=== PATIENT | female | born 1960 | race Caucasian/White ===

== ENCOUNTER → 2017-02-16 | Outpatient (CLI) | payer OTHER ==
[~2017-02-16] MED LIST: FLUO60TA PO; GABA300C10 PO; HYDR50TA13 PO; LAMO200T49 PO
== END | disposition home or self-care (01) ==
LOC: PETCFH 09:15
PROVIDERS: ATTEND Radiology Radiation Oncology
DX: C25.1 Malignant neoplasm of body of pancreas (principal)
CPT/HCPCS: 78815; A9552

== ENCOUNTER 2017-02-24 07:33 | Day surgery (SDC) | payer OTHER ==
[~2017-02-24] VITALS: Ht 165.1 cm; Wt 63.5 kg
[2017-02-24] MEDS ORDERED: LACTATED RINGERS 1,000 ML IV SCH (08:18)
[2017-02-24 08:41] VITALS: BP 113/76
[2017-02-24] MEDS ORDERED: HYDR-3138 PO (08:48)
[2017-02-24] MEDS ORDERED: HEPARIN 1,000 UNITS/ML, 10ML ONE (09:36)
[2017-02-24] MEDS ORDERED: PROTAMINE SULFATE 10 MG/ML, 5ML ONE (09:36)
[2017-02-24] MEDS ORDERED: BUPIVACAINE/PF-EPI 0.5% 1:200K ONE (09:36)
[2017-02-24] MEDS ORDERED: LIDOCAINE/PF 1%, 30ML ONE (09:37)
[2017-02-24] MEDS ORDERED: FENTANYL PF 250 MCG/5ML ONE (10:15)
[2017-02-24] MEDS ORDERED: ALBUTEROL SULFATE 200 PUFFS/8.5 GR INH ONE (10:16)
[2017-02-24] MEDS ORDERED: ONDANSETRON 2MG/ML, 2ML ONE (10:16)
[2017-02-24] MEDS ORDERED: CEFAZOLIN 1,000 MG ONE (10:16)
[2017-02-24] MEDS ORDERED: SUCCINYLCHOLINE 20 MG/ML, 10ML ONE (10:16)
[2017-02-24] MEDS ORDERED: GLYCOPYRROLATE 0.2MG/1ML ONE (10:16)
[2017-02-24] MEDS ORDERED: PROPOFOL 10 MG/ML, 20ML ONE (10:16)
[2017-02-24] MEDS ORDERED: NEOSTIGMINE 1 MG/ML, 10ML ONE (10:16)
[2017-02-24] MEDS ORDERED: EPHEDRINE 50 MG/ML, 1ML ONE (10:16)
[2017-02-24] MEDS ORDERED: DEXAMETHASONE 4 MG/ML, 1ML ONE (10:16)
[2017-02-24] MEDS ORDERED: ROCURONIUM 10 MG/ML ONE (10:16)
[2017-02-24] MEDS ORDERED: MIDAZOLAM 1 MG/ML, 2ML ONE (10:16)
[2017-02-24] MEDS ORDERED: ALBUTEROL SULFATE 2.5 MG/3 ML NPPB PRN (12:00)
[2017-02-24] MEDS ORDERED: MEPERIDINE/PF 25MG/0.5ML IVPush PRN (12:00)
[2017-02-24] MEDS ORDERED: FENTANYL PF 100 MCG/2ML IV PRN (12:00)
[2017-02-24] MEDS ORDERED: LABETALOL 5MG/ML, 20ML IV PRN (12:00)
[2017-02-24] MEDS ORDERED: EPHEDRINE 50 MG/ML, 1ML IVPush PRN (12:00)
[2017-02-24] MEDS ORDERED: HYDROmorphone 1 MG/ML, 1ML IV PRN (12:00)
[2017-02-24] MEDS ORDERED: ONDANSETRON 2MG/ML, 2ML IVPush PRN (12:00)
[2017-02-24] MEDS ORDERED: hydrALAzine 20 MG/ML, 1ML IV PRN (12:00)
[2017-02-24] MEDS ORDERED: HYDROcodone/APAP 7.5-325MG/15ML UDC PO PRN (12:00)
[2017-02-24] MEDS ORDERED: PROMETHAZINE 25 MG/ML, 1ML IV PRN (12:00)
[2017-02-24] MEDS ORDERED: OXYcodone/APAP 5/325MG TABLET PO ONE (12:30)
== END 2017-02-24 13:55 | disposition home or self-care (01) ==
LOC: OUT 07:33
PROVIDERS: ATTEND Surgery
DX: C25.1 Malignant neoplasm of body of pancreas (principal); M19.071 Primary osteoarthritis, right ankle and foot; F41.9 Anxiety disorder, unspecified; F32.9 Major depressive disorder, single episode, unspecified; Z84.1 Family history of disorders of kidney and ureter; Z79.01 Long term (current) use of anticoagulants
CPT/HCPCS: 36415; 36571; 71010; 77001; 85610; 85730; C1788; J0330; J0690; J1100; J1644; J2250; J2405; J2704; J2710; J3010; J7120; J2720; J3490

== ENCOUNTER 2017-03-18 12:40 | Emergency (ER) | payer OTHER ==
[~2017-03-18] VITALS: Ht 162.6 cm; Wt 67.4 kg
[~2017-03-18 12:40] MED LIST changes: +HYDR-3138 PO
[2017-03-18 12:42] VITALS: BP 122/76
[2017-03-18] MEDS ORDERED: SODIUM CHLORIDE FLUSH 10ML SYR IVF ONE (13:00)
[2017-03-18] MEDS ORDERED: SODIUM CHLORIDE 0.9% 1,000ML IVBOLUS ONE (13:00)
[2017-03-18 13:39] LABS: ASPARTATE AMINO TRANSFERASE 22 U/L (15-37); BLOOD UREA NITROGEN 9 mg/dL (7-18)
== END 2017-03-18 15:38 | disposition home or self-care (01) ==
LOC: ED 14:01
DX: R42 Dizziness and giddiness (principal)
CPT/HCPCS: 36415; 70450; 80053; 82140; 83605; 83690; 85025; 93005; 96360; 99285; J7030

== ENCOUNTER → 2017-06-25 | Outpatient (CLI) | payer OTHER ==
[~2017-06-25] MED LIST changes: -HYDR-3138 PO; +HYDR-3237 PO
== END | disposition home or self-care (01) ==
LOC: ROC 11:19
PROVIDERS: ATTEND Radiology Radiation Oncology
DX: C25.1 Malignant neoplasm of body of pancreas (principal); Z90.3 Acquired absence of stomach [part of]
CPT/HCPCS: 99213; G0463

== ENCOUNTER → 2017-07-07 | Outpatient (CLI) | payer OTHER ==
[~2017-07-07] MED LIST changes: +OMNIPAQUE 350 MG/ML, 100ML BOTTLE ONE
== END | disposition home or self-care (01) ==
LOC: RAD 13:56
PROVIDERS: ATTEND Surgery
DX: Z46.82 Encounter for fitting and adjustment of non-vascular catheter (principal); C25.1 Malignant neoplasm of body of pancreas; K76.0 Fatty (change of) liver, not elsewhere classified; K91.89 Other postprocedural complications and disorders of digestive system; M47.896 Other spondylosis, lumbar region; I70.209 Unspecified atherosclerosis of native arteries of extremities, unspecified extremity
CPT/HCPCS: 74170; Q9967

== ENCOUNTER → 2017-08-03 | Outpatient (CLI) | payer OTHER ==
[~2017-08-03] MED LIST changes: -OMNIPAQUE 350 MG/ML, 100ML BOTTLE ONE
== END ==
LOC: ROC 13:57
PROVIDERS: ATTEND Radiology Radiation Oncology
DX: Z02.9 Encounter for administrative examinations, unspecified (principal)

== ENCOUNTER → 2017-10-01 | Outpatient (CLI) | payer OTHER | END | disposition home or self-care (01) | LOC: ROC 12:30 | PROVIDERS: ATTEND Radiology Radiation Oncology | DX: C25.1 Malignant neoplasm of body of pancreas (principal) | CPT/HCPCS: 99213; G0463 ==

== ENCOUNTER → 2017-10-28 | Outpatient (CLI) | payer OTHER | END | disposition home or self-care (01) | LOC: ROC 08:53 | PROVIDERS: ATTEND Radiology Radiation Oncology | DX: C25.1 Malignant neoplasm of body of pancreas (principal) | CPT/HCPCS: 99213; G0463 ==

== ENCOUNTER → 2017-11-18 | Outpatient (CLI) | payer OTHER | END | disposition home or self-care (01) | LOC: ROC 09:48 | PROVIDERS: ATTEND Radiology Radiation Oncology | DX: C25.1 Malignant neoplasm of body of pancreas (principal) | CPT/HCPCS: 99213; G0463 ==

== ENCOUNTER → 2017-11-27 | Outpatient (CLI) | payer OTHER, MEDICAID ==
[~2017-11-27] MED LIST changes: +OMNIPAQUE 350 MG/ML, 100ML BOTTLE ONE
== END | disposition home or self-care (01) ==
LOC: CFH 15:13
PROVIDERS: ATTEND Radiology Radiation Oncology
DX: C25.1 Malignant neoplasm of body of pancreas (principal); Z90.49 Acquired absence of other specified parts of digestive tract; Z90.81 Acquired absence of spleen; Z90.411 Acquired partial absence of pancreas
CPT/HCPCS: 71260; 74177; Q9967

== ENCOUNTER → 2017-11-30 | Outpatient (CLI) | payer OTHER, MEDICAID ==
[~2017-11-30] MED LIST changes: -OMNIPAQUE 350 MG/ML, 100ML BOTTLE ONE
== END | disposition home or self-care (01) ==
LOC: ROC 10:04
PROVIDERS: ATTEND Radiology Radiation Oncology
DX: C25.1 Malignant neoplasm of body of pancreas (principal); Z98.890 Other specified postprocedural states
CPT/HCPCS: 99212; G0463

== ENCOUNTER → 2018-02-25 | Outpatient (CLI) | payer OTHER ==
[~2018-02-25] MED LIST changes: +OMNIPAQUE 350 MG/ML, 100ML BOTTLE ONE
== END ==
LOC: CFH 08:10
PROVIDERS: ATTEND Internal Medicine Hematology & Oncology
DX: C25.1 Malignant neoplasm of body of pancreas (principal)
CPT/HCPCS: 71260; 74177; 82565; Q9967

== ENCOUNTER 2018-03-31 06:15 | Day surgery (SDC) | payer MEDICAID, OTHER ==
[~2018-03-31] VITALS: Ht 165.1 cm; Wt 49.3 kg
[~2018-03-31 06:15] MED LIST changes: -OMNIPAQUE 350 MG/ML, 100ML BOTTLE ONE
[2018-03-31 06:57] VITALS: BP 149/77
[2018-03-31] MEDS ORDERED: MIDAZOLAM 1 MG/ML, 5ML ONE (08:02)
[2018-03-31] MEDS ORDERED: FENTANYL PF 100 MCG/2ML ONE (08:02)
[2018-03-31] MEDS ORDERED: NALOXONE 1 MG/ML, 2ML ONE (08:02)
[2018-03-31] MEDS ORDERED: FLUMAZENIL 0.1 MG/1 ML, 5ML ONE (08:02)
== END 2018-03-31 10:30 | disposition home or self-care (01) ==
LOC: OUT 06:15
PROVIDERS: ATTEND Internal Medicine Hematology & Oncology
DX: Z45.2 Encounter for adjustment and management of vascular access device (principal); C25.1 Malignant neoplasm of body of pancreas; F41.9 Anxiety disorder, unspecified; F32.9 Major depressive disorder, single episode, unspecified; F19.90 Other psychoactive substance use, unspecified, uncomplicated; Z87.39 Personal history of other diseases of the musculoskeletal system and connective tissue; Z98.890 Other specified postprocedural states
CPT/HCPCS: 36590; 77001; 99156; 99157; J2250; J3010; J2310

== ENCOUNTER → 2018-04-05 | Outpatient (CLI) | payer MEDICAID, OTHER | END | disposition home or self-care (01) | LOC: ROC 01-13 07:45 | PROVIDERS: ATTEND Radiology Radiation Oncology | DX: C25.1 Malignant neoplasm of body of pancreas (principal) | CPT/HCPCS: 99213; G0463 ==

== ENCOUNTER 2018-05-09 14:30 | Emergency (ER) | payer MEDICAID ==
[~2018-05-09] VITALS: Ht 165.1 cm; Wt 50.4 kg
[2018-05-09 14:31] VITALS: BP 145/77
[2018-05-09 15:34] LABS: BASOPHILS # (AUTO) 0.05 x10^3/uL (0-0.1); BASOPHILS % (AUTO) 1 % (0-1); EOSINOPHILS # (AUTO) 0.11 x10^3/uL (0-0.4); EOSINOPHILS % (AUTO) 1 % (1-7); LYMPHOCYTES # (AUTO) 2.56 x10^3/uL (1-3.4); LYMPHOCYTES % (AUTO) 30 % (22-44); MD NO; MEAN CORPUSCULAR HEMOGLOBIN 31.1 pg (27.0-34.8); MEAN CORPUSCULAR HGB CONC 32.8 g/dL (32.4-35.8); MEAN CORPUSCULAR VOLUME 94.8 fL (80-100); MEAN PLATELET VOLUME 8.2 fL (7.4-10.4); MONOCYTES # (AUTO) 0.84 x10^3/uL (0.2-0.8); MONOCYTES % (AUTO) 10 % (2-9); NEUTROPHILS # (AUTO) 5.01 x10^3/uL (1.8-6.8); NEUTROPHILS % (AUTO) 59 % (42-75); PLATELET COUNT 343 x10^3/uL (130-400); RED BLOOD COUNT 4.45 x10^6/uL (3.82-5.3); RED CELL DISTRIBUTION WIDTH 14.4 % (9.6-15.2)
[2018-05-09 15:51] LABS: ALANINE AMINOTRANSFERASE 37 U/L (12-78); ALBUMIN 3.6 g/dL (3.4-5.0); ANION GAP 7 mmol/L (5-15); CALCIUM 9.3 mg/dL (8.5-10.1); CHLORIDE 104 mmol/L (98-107); CREATININE 0.85 mg/dL (0.55-1.02)
[2018-05-09 15:54] LABS: ALKALINE PHOSPHATASE 80 U/L (45-117); BILIRUBIN,TOTAL 0.4 mg/dL (0.2-1.0)
== END 2018-05-09 16:36 | disposition home or self-care (01) ==
LOC: ED 16:11
DX: K59.00 Constipation, unspecified (principal); R11.0 Nausea; F17.200 Nicotine dependence, unspecified, uncomplicated
CPT/HCPCS: 36415; 74022; 80053; 83690; 85025; 99285

== ENCOUNTER → 2018-06-07 | Outpatient (CLI) | payer MEDICAID ==
[~2018-06-07] MED LIST changes: +OMNIPAQUE 350 MG/ML, 100ML BOTTLE ONE
== END | disposition home or self-care (01) ==
LOC: CFH 12:20
PROVIDERS: ATTEND Radiology Radiation Oncology
DX: K66.9 Disorder of peritoneum, unspecified (principal); N28.89 Other specified disorders of kidney and ureter; C25.1 Malignant neoplasm of body of pancreas; Z90.411 Acquired partial absence of pancreas; Z90.49 Acquired absence of other specified parts of digestive tract
CPT/HCPCS: 71260; 74177; Q9967

== ENCOUNTER → 2018-07-07 | Outpatient (CLI) | payer MEDICAID ==
[~2018-07-07] MED LIST changes: -OMNIPAQUE 350 MG/ML, 100ML BOTTLE ONE
== END | disposition home or self-care (01) ==
LOC: ROC 13:08
PROVIDERS: ATTEND Radiology Radiation Oncology
DX: C25.1 Malignant neoplasm of body of pancreas (principal); Z87.891 Personal history of nicotine dependence
CPT/HCPCS: 99213; G0463

== ENCOUNTER 2018-08-02 11:23 | Inpatient (IN) | payer MEDICAID, OTHER ==
[~2018-08-02] VITALS: Ht 165.1 cm; Wt 60.4 kg
[2018-08-02] MEDS ORDERED: SODIUM CHLORIDE FLUSH 10ML SYR IVF ONE (12:30)
[2018-08-02] MEDS ORDERED: ONDANSETRON ODT 4 MG PO ONE (12:30)
[2018-08-02] MEDS ORDERED: MORPHINE SULFATE 4 MG/ML, 1ML IVPush PRN (12:30)
[2018-08-02] MEDS ORDERED: SODIUM CHLORIDE 0.9% 1,000 ML IV ONE (12:33)
[2018-08-02 12:35] LABS: MEAN CORPUSCULAR HGB CONC 33.4 g/dL (32.4-35.8); PLATELET COUNT 300 x10^3/uL (130-400); RED BLOOD COUNT 4.73 x10^6/uL (3.82-5.3); RED CELL DISTRIBUTION WIDTH 14.3 % (9.6-15.2)
[2018-08-02 12:39] LABS: ALANINE AMINOTRANSFERASE 33 U/L (12-78); ALBUMIN 2.9 g/dL (3.4-5.0); ANION GAP 9 mmol/L (5-15); CHLORIDE 95 mmol/L (98-107)
[2018-08-02 12:44] LABS: ALKALINE PHOSPHATASE 77 U/L (45-117); BILIRUBIN,TOTAL 1.1 mg/dL (0.2-1.0); CREATININE 1.09 mg/dL (0.55-1.02); TOTAL PROTEIN 7.4 g/dL (6.4-8.2); TROPONIN I < 0.015 ng/mL (0.000-0.045)
[2018-08-02] MEDS ORDERED: SODIUM CHLORIDE 0.9% 1,000ML IVBOLUS ONE (13:00)
[2018-08-02] MEDS ORDERED: VANCOMYCIN PER PHARMACY MC ONE (13:00)
[2018-08-02] MEDS ORDERED: VANCOMYCIN PMX 1GM/200ML 200 ML IV ONE (13:00)
[2018-08-02] MEDS ORDERED: PIPERACILLIN/TAZO/PMX 3.375GM 50 ML IVPB ONE (13:00)
[2018-08-02 13:12] LABS: MD YES
[2018-08-02 13:17] LABS: BAND#(MANUAL) 4.07 x10^3/uL; BANDS%(MANUAL) 14 % (0-7); LYMPH#(MANUAL) 4.66 x10^3/uL (1-3.4); LYMPHS% (MANUAL) 16 % (22-44); METAMYELOCYTES# (MANUAL) 0.29 x10^3/uL (0-0); METAMYELOCYTES% (MANUAL) 1 % (0-1); MONOS#(MANUAL) 2.62 x10^3/uL (0.3-2.7); MONOS% (MANUAL) 9 % (2-9); SEG#(MANUAL) 17.46 x10^3/uL (1.8-6.8); SEGS% (MANUAL) 60 % (42-75)
[2018-08-02 13:19] LABS: <PLATELET ESTIMATE> ADEQUATE; <PLT MORPHOLOGY> NORMAL PLT MORPH; <RBC MORPHOLOGY> NORMAL; PMNS WITH VACUOLES 1+; SMUDGE CELLS 1+
[2018-08-02] MEDS ORDERED: OMNIPAQUE 350 MG/ML, 100ML BOTTLE ONE ×2 (13:39→13:54)
[2018-08-02] MEDS ORDERED: ONDANSETRON ODT 4 MG ONE (13:57)
[2018-08-02] MEDS ORDERED: MORPHINE SULFATE 4 MG/ML, 1ML ONE (13:57)
[2018-08-02 14:42] LABS: MICROSCOPIC INDICATED
[2018-08-02 15:02] LABS: CULTURE INDICATED? NO
[2018-08-02] MEDS ORDERED: ARIP5TAB13 PO (15:38)
[2018-08-02] MEDS ORDERED: LORA-446 PO (15:38)
[2018-08-02] MEDS ORDERED: PIPERACILLIN/TAZO/PMX 3.375GM 50 ML ONE (15:50)
[2018-08-02] MEDS ORDERED: POLYETHYLENE GLYCOL 17 GM PACKET PO PRN (16:00)
[2018-08-02] MEDS ORDERED: ONDANSETRON 2MG/ML, 2ML IVPush PRN (16:00)
[2018-08-02] MEDS ORDERED: CEFTRIAXONE 1,000 MG in SODIUM CHLORIDE 0.9% 50 ML IV SCH (16:00)
[2018-08-02] MEDS ORDERED: DOCUSATE 100 MG CAPSULE PO PRN (16:00)
[2018-08-02] MEDS ORDERED: LABETALOL 5MG/ML, 20ML IVPush PRN (16:00)
[2018-08-02] MEDS ORDERED: hydrOXyzine 50MG TABLET PO PRN (16:00)
[2018-08-02] MEDS ORDERED: LORazepam 1MG TABLET PO PRN ×2 (16:00→20:00)
[2018-08-02] MEDS ORDERED: BISACODYL 10 MG SUPP PR PRN (16:00)
[2018-08-02 16:14] VITALS: BP 101/66
[2018-08-02] MEDS ORDERED: [UNRECOGNIZED DRUG - REMARK] MC SCH (16:30)
[2018-08-02] MEDS: HYDROcodone/APAP 5/325 TABLET PO SCH ×2 (16:39→20:00)
[2018-08-02] MEDS: ENOXAPARIN 40 MG/0.4 ML SQ SCH (16:40)
[2018-08-02] MEDS: SODIUM CHLORIDE 0.9% 1,000 ML IV SCH (16:40)
[2018-08-02] MEDS: ALBUTEROL SULFATE 2.5 MG/3 ML NPPB SCH (17:15)
[2018-08-02 17:16] LABS: RAPID INFLUENZA A Negative (Negative); RAPID INFLUENZA B Negative (Negative)
[2018-08-02] MEDS ORDERED: ALBUTEROL SULFATE 2.5 MG/3 ML ONE (17:17)
[2018-08-02] MEDS ORDERED: LORA0.5T PO (17:32)
[2018-08-02] MEDS: DOXYCYCLINE 100 MG in DEXTROSE 5% 250 ML IV SCH (18:00)
[2018-08-02 20:02] VITALS: BP 91/60
[2018-08-02] MEDS: GUAIFENESIN ER 600 MG TABLET PO SCH (20:58)
[2018-08-02] MEDS: NICOTINE 14MG/24 HR PATCH.TD24 TD SCH (20:58)
[2018-08-03] VITALS (10 sets, daily range): BP systolic 84–106; BP diastolic 54–65
[2018-08-03] MEDS: SODIUM CHLORIDE 0.9% 1,000 ML IV SCH ×2 (01:17→13:27)
[2018-08-03] MEDS ORDERED: SODIUM CHLORIDE 0.9%, 500ML IVBOLUS ONE ×3 (01:30→13:00)
[2018-08-03] MEDS: DOXYCYCLINE 100 MG in DEXTROSE 5% 250 ML IV SCH ×2 (05:30→18:19)
[2018-08-03 06:12] LABS: MEAN CORPUSCULAR HEMOGLOBIN 32.1 pg (27.0-34.8); MEAN CORPUSCULAR HGB CONC 33.1 g/dL (32.4-35.8); MEAN CORPUSCULAR VOLUME 97.1 fL (80-100); MEAN PLATELET VOLUME 8.9 fL (7.4-10.4); PLATELET COUNT 276 x10^3/uL (130-400); RED BLOOD COUNT 4.46 x10^6/uL (3.82-5.3); RED CELL DISTRIBUTION WIDTH 14.7 % (9.6-15.2)
[2018-08-03 06:19] LABS: ALBUMIN 2.3 g/dL (3.4-5.0); ANION GAP 8 mmol/L (5-15); CHLORIDE 103 mmol/L (98-107)
[2018-08-03 06:24] LABS: ALANINE AMINOTRANSFERASE 27 U/L (12-78); ALKALINE PHOSPHATASE 76 U/L (45-117); BILIRUBIN,TOTAL 0.8 mg/dL (0.2-1.0); CREATININE 0.78 mg/dL (0.55-1.02); TOTAL PROTEIN 6.2 g/dL (6.4-8.2)
[2018-08-03 06:37] LABS: MD YES
[2018-08-03 06:39] LABS: <RBC MORPHOLOGY> NORMAL; BAND#(MANUAL) 3.01 x10^3/uL; BANDS%(MANUAL) 11 % (0-7); BASOS#(MANUAL) 0.27 x10^3/uL (0-0.1); BASOS% (MANUAL) 1 % (0-1); LYMPH#(MANUAL) 5.21 x10^3/uL (1-3.4); LYMPHS% (MANUAL) 19 % (22-44); MONOS#(MANUAL) 1.37 x10^3/uL (0.3-2.7); MONOS% (MANUAL) 5 % (2-9); SEG#(MANUAL) 17.54 x10^3/uL (1.8-6.8); SEGS% (MANUAL) 64 % (42-75)
[2018-08-03 06:40] LABS: <PLATELET ESTIMATE> ADEQUATE; <PLT MORPHOLOGY> NORMAL PLT MORPH; PMNS WITH VACUOLES 1+; SMUDGE CELLS 1+
[2018-08-03] MEDS: ALBUTEROL SULFATE 2.5 MG/3 ML NPPB SCH ×4 (07:55→20:30)
[2018-08-03] MEDS: FLUOXETINE HCL 20 MG CAPSULE PO SCH (09:20)
[2018-08-03] MEDS: GUAIFENESIN ER 600 MG TABLET PO SCH ×2 (09:20→21:15)
[2018-08-03] MEDS: ARIPIPRAZOLE 5 MG TABLET PO SCH (09:20)
[2018-08-03] MEDS: KETOROLAC 30 MG/1 ML IV PRN ×2 (09:21→21:22)
[2018-08-03] MEDS: LAMOTRIGINE 200 MG TABLET PO SCH (09:25)
[2018-08-03] MEDS ORDERED: SODIUM CHLORIDE 0.9% 1,000ML IVBOLUS ONE (16:00)
[2018-08-03] MEDS: ENOXAPARIN 40 MG/0.4 ML SQ SCH (16:58)
[2018-08-03] MEDS: ACETAMINOPHEN 325 MG TABLET PO PRN (16:58)
[2018-08-03] MEDS: CEFTRIAXONE PMX 2GM/50ML 50 ML IV SCH (16:59)
[2018-08-03] MEDS: NICOTINE 14MG/24 HR PATCH.TD24 TD SCH (21:16)
[2018-08-04] VITALS (8 sets, daily range): BP systolic 95–126; BP diastolic 60–80
[2018-08-04] MEDS: KETOROLAC 30 MG/1 ML IV PRN ×3 (04:44→22:52)
[2018-08-04 05:55] LABS: MEAN CORPUSCULAR HGB CONC 33.3 g/dL (32.4-35.8); MEAN CORPUSCULAR VOLUME 96.3 fL (80-100); PLATELET COUNT 298 x10^3/uL (130-400); RED BLOOD COUNT 3.84 x10^6/uL (3.82-5.3); RED CELL DISTRIBUTION WIDTH 14.4 % (9.6-15.2)
[2018-08-04 06:05] LABS: ANION GAP 7 mmol/L (5-15); CALCIUM 8.5 mg/dL (8.5-10.1); CHLORIDE 109 mmol/L (98-107); CREATININE 0.59 mg/dL (0.55-1.02)
[2018-08-04] MEDS: DOXYCYCLINE 100 MG in DEXTROSE 5% 250 ML IV SCH ×2 (06:18→18:15)
[2018-08-04] MEDS: ALBUTEROL SULFATE 2.5 MG/3 ML NPPB SCH ×4 (06:44→20:00)
[2018-08-04 06:47] LABS: MD YES
[2018-08-04 06:49] LABS: BAND#(MANUAL) 1.29 x10^3/uL; BANDS%(MANUAL) 7 % (0-7); EOS#(MANUAL) 0.92 x10^3/uL (0.0-0.4); EOS% (MANUAL) 5 % (1-7); LYMPH#(MANUAL) 1.29 x10^3/uL (1-3.4); LYMPHS% (MANUAL) 7 % (22-44); MONOS#(MANUAL) 0.37 x10^3/uL (0.3-2.7); MONOS% (MANUAL) 2 % (2-9); SEG#(MANUAL) 14.54 x10^3/uL (1.8-6.8); SEGS% (MANUAL) 79 % (42-75)
[2018-08-04 06:50] LABS: <PLATELET ESTIMATE> ADEQUATE; <PLT MORPHOLOGY> NORMAL PLT MORPH; <RBC MORPHOLOGY> NORMAL
[2018-08-04] MEDS: FLUOXETINE HCL 20 MG CAPSULE PO SCH (08:27)
[2018-08-04] MEDS: SODIUM CHLORIDE 0.9% 1,000 ML IV SCH ×2 (08:28→16:34)
[2018-08-04] MEDS: GUAIFENESIN ER 600 MG TABLET PO SCH ×2 (08:28→20:48)
[2018-08-04] MEDS: ARIPIPRAZOLE 5 MG TABLET PO SCH (08:28)
[2018-08-04] MEDS: LAMOTRIGINE 200 MG TABLET PO SCH (08:29)
[2018-08-04] MEDS ORDERED: SODIUM CHLORIDE 0.9% 1,000 ML IV SCH (15:31)
[2018-08-04] MEDS: CEFTRIAXONE PMX 2GM/50ML 50 ML IV SCH (16:34)
[2018-08-04] MEDS: ENOXAPARIN 40 MG/0.4 ML SQ SCH (16:34)
[2018-08-04] MEDS: ACETAMINOPHEN 325 MG TABLET PO PRN (20:48)
[2018-08-04] MEDS: NICOTINE 14MG/24 HR PATCH.TD24 TD SCH (20:50)
[2018-08-04 23:43] LABS: CLOSTRIDIUM DIFFICILE ANTIGEN NEGATIVE; CLOSTRIDIUM DIFFICILE TOXIN NEGATIVE (Negative)
[2018-08-05 01:42] VITALS: BP 121/63
[2018-08-05] MEDS: SODIUM CHLORIDE 0.9% 1,000 ML IV SCH ×2 (02:45→17:41)
[2018-08-05 05:33] LABS: ANION GAP 9 mmol/L (5-15); CALCIUM 8.3 mg/dL (8.5-10.1); CHLORIDE 111 mmol/L (98-107); CREATININE 0.51 mg/dL (0.55-1.02)
[2018-08-05 05:34] LABS: MEAN CORPUSCULAR HEMOGLOBIN 31.7 pg (27.0-34.8); MEAN CORPUSCULAR VOLUME 95.9 fL (80-100); MEAN PLATELET VOLUME 8.6 fL (7.4-10.4); PLATELET COUNT 348 x10^3/uL (130-400); RED BLOOD COUNT 3.81 x10^6/uL (3.82-5.3); RED CELL DISTRIBUTION WIDTH 14.5 % (9.6-15.2)
[2018-08-05] MEDS: DOXYCYCLINE 100 MG in DEXTROSE 5% 250 ML IV SCH ×2 (05:39→17:41)
[2018-08-05 06:05] LABS: MD YES
[2018-08-05 06:07] LABS: BANDS%(MANUAL) 7 % (0-7); EOS#(MANUAL) 0.51 x10^3/uL (0.0-0.4); EOS% (MANUAL) 4 % (1-7); LYMPH#(MANUAL) 2.18 x10^3/uL (1-3.4); LYMPHS% (MANUAL) 17 % (22-44); MONOS#(MANUAL) 1.28 x10^3/uL (0.3-2.7); MONOS% (MANUAL) 10 % (2-9); SEG#(MANUAL) 7.94 x10^3/uL (1.8-6.8); SEGS% (MANUAL) 62 % (42-75)
[2018-08-05 06:09] LABS: <PLATELET ESTIMATE> ADEQUATE; <PLT MORPHOLOGY> NORMAL PLT MORPH
[2018-08-05] MEDS: ALBUTEROL SULFATE 2.5 MG/3 ML NPPB SCH ×4 (06:37→20:31)
[2018-08-05 06:46] LABS: TOXIC GRAN 1+
[2018-08-05 08:27] VITALS: BP 119/72
[2018-08-05] MEDS: ARIPIPRAZOLE 5 MG TABLET PO SCH (08:34)
[2018-08-05] MEDS: GUAIFENESIN ER 600 MG TABLET PO SCH ×2 (08:34→20:59)
[2018-08-05] MEDS: LAMOTRIGINE 200 MG TABLET PO SCH (08:34)
[2018-08-05] MEDS: FLUOXETINE HCL 20 MG CAPSULE PO SCH (08:34)
[2018-08-05] MEDS: POTASSIUM CHLORIDE 20 MEQ TAB.ER.PRT PO SCH ×2 (08:34→16:19)
[2018-08-05] MEDS: HYDROcodone/APAP 5/325 TABLET PO PRN ×2 (08:40→16:19)
[2018-08-05 14:10] VITALS: BP 132/83
[2018-08-05] MEDS: CEFTRIAXONE PMX 2GM/50ML 50 ML IV SCH (16:19)
[2018-08-05] MEDS: ENOXAPARIN 40 MG/0.4 ML SQ SCH (16:24)
[2018-08-05 20:36] VITALS: BP 129/77
[2018-08-05] MEDS: NICOTINE 14MG/24 HR PATCH.TD24 TD SCH (20:59)
[2018-08-05] MEDS: ACETAMINOPHEN 325 MG TABLET PO PRN (20:59)
[2018-08-06 01:08] VITALS: BP 129/83
[2018-08-06] MEDS: SODIUM CHLORIDE 0.9% 1,000 ML IV SCH ×3 (02:04→20:14)
[2018-08-06] MEDS: HYDROcodone/APAP 5/325 TABLET PO PRN ×2 (05:04→11:21)
[2018-08-06 05:25] LABS: MEAN CORPUSCULAR HEMOGLOBIN 32.2 pg (27.0-34.8); MEAN CORPUSCULAR HGB CONC 33.4 g/dL (32.4-35.8); MEAN CORPUSCULAR VOLUME 96.3 fL (80-100); MEAN PLATELET VOLUME 8.7 fL (7.4-10.4); PLATELET COUNT 390 x10^3/uL (130-400); RED BLOOD COUNT 3.72 x10^6/uL (3.82-5.3); RED CELL DISTRIBUTION WIDTH 14.6 % (9.6-15.2)
[2018-08-06 05:36] LABS: ANION GAP 7 mmol/L (5-15); CALCIUM 7.8 mg/dL (8.5-10.1); CHLORIDE 107 mmol/L (98-107); CREATININE 0.47 mg/dL (0.55-1.02)
[2018-08-06 05:47] LABS: MD YES
[2018-08-06 05:51] LABS: <RBC MORPHOLOGY> NORMAL; LYMPH#(MANUAL) 1.63 x10^3/uL (1-3.4); LYMPHS% (MANUAL) 13 % (22-44); MONOS#(MANUAL) 3.38 x10^3/uL (0.3-2.7); MONOS% (MANUAL) 27 % (2-9); SEGS% (MANUAL) 60 % (42-75)
[2018-08-06 05:52] LABS: <PLATELET ESTIMATE> ADEQUATE; <PLT MORPHOLOGY> NORMAL PLT MORPH; TOXIC GRAN 1+
[2018-08-06] MEDS: DOXYCYCLINE 100 MG in DEXTROSE 5% 250 ML IV SCH ×2 (05:55→18:36)
[2018-08-06] MEDS: ALBUTEROL SULFATE 2.5 MG/3 ML NPPB SCH ×4 (07:10→20:00)
[2018-08-06 07:14] VITALS: BP 114/68
[2018-08-06] MEDS: POTASSIUM CHLORIDE 20 MEQ TAB.ER.PRT PO SCH ×2 (10:26→17:09)
[2018-08-06] MEDS: ARIPIPRAZOLE 5 MG TABLET PO SCH (10:26)
[2018-08-06] MEDS: GUAIFENESIN ER 600 MG TABLET PO SCH ×2 (10:26→20:14)
[2018-08-06] MEDS: LAMOTRIGINE 200 MG TABLET PO SCH (10:33)
[2018-08-06] MEDS: FLUOXETINE HCL 20 MG CAPSULE PO SCH (10:33)
[2018-08-06 14:17] VITALS: BP 144/90
[2018-08-06] MEDS: ACETAMINOPHEN 325 MG TABLET PO PRN (17:09)
[2018-08-06] MEDS: ENOXAPARIN 40 MG/0.4 ML SQ SCH (17:09)
[2018-08-06] MEDS: CEFTRIAXONE PMX 2GM/50ML 50 ML IV SCH (17:10)
[2018-08-06 19:51] VITALS: BP 111/67
[2018-08-06] MEDS: NICOTINE 14MG/24 HR PATCH.TD24 TD SCH (20:20)
[2018-08-07 02:09] VITALS: BP 135/82
[2018-08-07] MEDS: ACETAMINOPHEN 325 MG TABLET PO PRN ×2 (02:17→16:21)
[2018-08-07] MEDS: SODIUM CHLORIDE 0.9% 1,000 ML IV SCH ×2 (04:18→21:23)
[2018-08-07] MEDS: DOXYCYCLINE 100 MG in DEXTROSE 5% 250 ML IV SCH (05:14)
[2018-08-07 05:58] LABS: ANION GAP 7 mmol/L (5-15); CALCIUM 8.4 mg/dL (8.5-10.1); CHLORIDE 108 mmol/L (98-107)
[2018-08-07 05:59] LABS: CREATININE 0.45 mg/dL (0.55-1.02)
[2018-08-07 06:00] LABS: MEAN CORPUSCULAR HEMOGLOBIN 31.7 pg (27.0-34.8); MEAN CORPUSCULAR HGB CONC 32.9 g/dL (32.4-35.8); MEAN CORPUSCULAR VOLUME 96.3 fL (80-100); MEAN PLATELET VOLUME 8.6 fL (7.4-10.4); PLATELET COUNT 490 x10^3/uL (130-400); RED BLOOD COUNT 3.63 x10^6/uL (3.82-5.3); RED CELL DISTRIBUTION WIDTH 14.5 % (9.6-15.2)
[2018-08-07] MEDS: ALBUTEROL SULFATE 2.5 MG/3 ML NPPB SCH ×2 (06:35→10:34)
[2018-08-07 07:12] LABS: MD YES
[2018-08-07 07:15] LABS: BANDS%(MANUAL) 2 % (0-7); EOS% (MANUAL) 1 % (1-7); LYMPH#(MANUAL) 2.06 x10^3/uL (1-3.4); LYMPHS% (MANUAL) 21 % (22-44); METAMYELOCYTES% (MANUAL) 1 % (0-1); MONOS#(MANUAL) 2.06 x10^3/uL (0.3-2.7); MONOS% (MANUAL) 21 % (2-9); MYELOCYTES% (MANUAL) 1 % (0-0); SEG#(MANUAL) 5.19 x10^3/uL (1.8-6.8); SEGS% (MANUAL) 53 % (42-75)
[2018-08-07 07:17] LABS: <PLATELET ESTIMATE> INCREASED; <PLT MORPHOLOGY> NORMAL PLT MORPH; ANISOCYTOSIS 1+
[2018-08-07 07:45] VITALS: BP 137/82
[2018-08-07] MEDS: POTASSIUM CHLORIDE 20 MEQ TAB.ER.PRT PO SCH ×2 (09:09→17:24)
[2018-08-07] MEDS: ARIPIPRAZOLE 5 MG TABLET PO SCH (09:09)
[2018-08-07] MEDS: GUAIFENESIN ER 600 MG TABLET PO SCH ×2 (09:09→21:23)
[2018-08-07] MEDS: LAMOTRIGINE 200 MG TABLET PO SCH (09:09)
[2018-08-07] MEDS: FLUOXETINE HCL 20 MG CAPSULE PO SCH (09:10)
[2018-08-07] MEDS ORDERED: MAGNESIUM SULFATE PMX 2GM/50ML 50 ML IV ONE (11:30)
[2018-08-07] MEDS: HYDROcodone/APAP 5/325 TABLET PO PRN ×2 (12:25→21:23)
[2018-08-07 13:11] VITALS: BP 136/77
[2018-08-07] MEDS: ENOXAPARIN 40 MG/0.4 ML SQ SCH (16:24)
[2018-08-07] MEDS: LEVOFLOXACIN 750 MG TABLET PO SCH (16:24)
[2018-08-07 19:22] VITALS: BP 142/83
[2018-08-07] MEDS ORDERED: ALBUTEROL SULFATE 2.5 MG/3 ML NPPB SCH (21:00)
[2018-08-07] MEDS: NICOTINE 14MG/24 HR PATCH.TD24 TD SCH (21:23)
[2018-08-08 02:24] VITALS: BP 132/78
[2018-08-08] MEDS: SODIUM CHLORIDE 0.9% 1,000 ML IV SCH (05:30)
[2018-08-08 06:03] LABS: ALBUMIN 2.3 g/dL (3.4-5.0); CALCIUM 8.4 mg/dL (8.5-10.1); CHLORIDE 109 mmol/L (98-107)
[2018-08-08 06:08] LABS: ALANINE AMINOTRANSFERASE 23 U/L (12-78); ALKALINE PHOSPHATASE 72 U/L (45-117); ANION GAP 7 mmol/L (5-15); BILIRUBIN,TOTAL 0.3 mg/dL (0.2-1.0); CREATININE 0.51 mg/dL (0.55-1.02); TOTAL PROTEIN 6.6 g/dL (6.4-8.2)
[2018-08-08 06:32] LABS: MD YES; MEAN CORPUSCULAR HEMOGLOBIN 31.1 pg (27.0-34.8); MEAN CORPUSCULAR HGB CONC 32.6 g/dL (32.4-35.8); MEAN CORPUSCULAR VOLUME 95.4 fL (80-100); MEAN PLATELET VOLUME 9.4 fL (7.4-10.4); PLATELET COUNT 477 x10^3/uL (130-400); RED BLOOD COUNT 4.03 x10^6/uL (3.82-5.3); RED CELL DISTRIBUTION WIDTH 14.5 % (9.6-15.2)
[2018-08-08 06:35] LABS: BAND#(MANUAL) 0.22 x10^3/uL; BANDS%(MANUAL) 2 % (0-7); BASOS#(MANUAL) 0.11 x10^3/uL (0-0.1); BASOS% (MANUAL) 1 % (0-1); EOS#(MANUAL) 0.44 x10^3/uL (0.0-0.4); EOS% (MANUAL) 4 % (1-7); LYMPH#(MANUAL) 2.73 x10^3/uL (1-3.4); LYMPHS% (MANUAL) 25 % (22-44); MONOS% (MANUAL) 11 % (2-9); SEG#(MANUAL) 6.21 x10^3/uL (1.8-6.8); SEGS% (MANUAL) 57 % (42-75)
[2018-08-08 06:36] LABS: <PLATELET ESTIMATE> INCREASED; <PLT MORPHOLOGY> NORMAL PLT MORPH; ANISOCYTOSIS 1+
[2018-08-08] MEDS ORDERED: ALBUTEROL SULFATE 2.5 MG/3 ML NPPB SCH (07:00)
[2018-08-08 07:11] VITALS: BP 133/83
[2018-08-08] MEDS: LAMOTRIGINE 200 MG TABLET PO SCH (08:57)
[2018-08-08] MEDS: GUAIFENESIN ER 600 MG TABLET PO SCH (08:58)
[2018-08-08] MEDS: LEVOFLOXACIN 750 MG TABLET PO SCH (08:58)
[2018-08-08] MEDS: ARIPIPRAZOLE 5 MG TABLET PO SCH (08:58)
[2018-08-08] MEDS: FLUOXETINE HCL 20 MG CAPSULE PO SCH (08:58)
[2018-08-08] MEDS: POTASSIUM CHLORIDE 20 MEQ TAB.ER.PRT PO SCH (08:58)
[2018-08-08] MEDS ORDERED: GUAI600T31 PO (10:48)
[2018-08-08] MEDS ORDERED: LEVO750T26 PO (10:48)
[2018-08-08 13:25] VITALS: BP 148/83
== END 2018-08-08 14:25 | disposition home or self-care (01) | DRG 871 ==
LOC: ED 13:16 → EDIP 15:05 → 4EST 16:00
PROVIDERS: ADMIT Internal Medicine; ATTEND Internal Medicine
DX: A41.9 Sepsis, unspecified organism (principal); J96.01 Acute respiratory failure with hypoxia; J18.1 Lobar pneumonia, unspecified organism; E44.0 Moderate protein-calorie malnutrition; E87.1 Hypo-osmolality and hyponatremia; E87.2 Acidosis; J98.11 Atelectasis; E86.0 Dehydration; F17.200 Nicotine dependence, unspecified, uncomplicated; R73.9 Hyperglycemia, unspecified; B95.3 Streptococcus pneumoniae as the cause of diseases classified elsewhere; R65.20 Severe sepsis without septic shock; Z83.3 Family history of diabetes mellitus; Z85.07 Personal history of malignant neoplasm of pancreas; Z80.9 Family history of malignant neoplasm, unspecified; Z68.22 Body mass index [BMI] 22.0-22.9, adult; Z90.49 Acquired absence of other specified parts of digestive tract; Z90.89 Acquired absence of other organs
CPT/HCPCS: 36415; 84145; 87400; 99291; J7613; 70450; 71045; 71275; 80048; 80053; 81001; 83605; 83690; 83735; 84484; 85025; 87040; 87070; 87077; 87181; 87184; 87205; 87324; 93005; 94640; 96361; 96374; 96375; G0378; J0696; J1650; J1885; J2543; J3370; J7060; Q0162; Q9967; J3475; J7030; J7040

== ENCOUNTER → 2018-10-04 | Outpatient (CLI) | payer MEDICAID ==
[~2018-10-04] MED LIST changes: +ARIP5TAB13 PO; +GUAI600T31 PO; +LEVO750T26 PO; +LORA-446 PO; +LORA0.5T PO
== END | disposition home or self-care (01) ==
LOC: ROC 07:31
PROVIDERS: ATTEND Radiology Radiation Oncology
DX: Z02.9 Encounter for administrative examinations, unspecified (principal)

== ENCOUNTER 2018-10-16 13:08 | Emergency (ER) | payer MEDICAID ==
[~2018-10-16] VITALS: Ht 165.1 cm; Wt 55.0 kg
[2018-10-16] MEDS ORDERED: ONDANSETRON ODT 4 MG PO PRN (14:00)
[2018-10-16] MEDS ORDERED: DEXAMETHASONE 4 MG/ML, 1ML PO ONE (14:00)
[2018-10-16] MEDS ORDERED: ONDANSETRON ODT 8 MG ONE (14:17)
[2018-10-16 14:21] LABS: BASOPHILS # (AUTO) 0.02 x10^3/uL (0-0.1); BASOPHILS % (AUTO) 0 % (0-1); EOSINOPHILS # (AUTO) 0.11 x10^3/uL (0-0.4); EOSINOPHILS % (AUTO) 1 % (1-7); LYMPHOCYTES # (AUTO) 2.24 x10^3/uL (1-3.4); LYMPHOCYTES % (AUTO) 27 % (22-44); MD NO; MEAN CORPUSCULAR VOLUME 94.1 fL (80-100); MEAN PLATELET VOLUME 8.1 fL (7.4-10.4); MONOCYTES # (AUTO) 0.57 x10^3/uL (0.2-0.8); MONOCYTES % (AUTO) 7 % (2-9); NEUTROPHILS # (AUTO) 5.44 x10^3/uL (1.8-6.8); NEUTROPHILS % (AUTO) 65 % (42-75); PLATELET COUNT 435 x10^3/uL (130-400); RED BLOOD COUNT 5.06 x10^6/uL (3.82-5.3); RED CELL DISTRIBUTION WIDTH 15.2 % (9.6-15.2)
[2018-10-16 14:30] LABS: ALANINE AMINOTRANSFERASE 25 U/L (12-78); ALBUMIN 3.8 g/dL (3.4-5.0); ANION GAP 5 mmol/L (5-15); CALCIUM 8.9 mg/dL (8.5-10.1); CHLORIDE 106 mmol/L (98-107); CREATININE 0.93 mg/dL (0.55-1.02)
[2018-10-16 14:33] LABS: ALKALINE PHOSPHATASE 93 U/L (45-117); BILIRUBIN,TOTAL 0.4 mg/dL (0.2-1.0); TOTAL PROTEIN 7.9 g/dL (6.4-8.2)
[2018-10-16] MEDS ORDERED: DEXAMETHASONE 4 MG TABLET ONE (14:40)
[2018-10-16 15:50] VITALS: BP 115/73
== END 2018-10-16 16:03 | disposition home or self-care (01) ==
LOC: ED 14:04
DX: J02.8 Acute pharyngitis due to other specified organisms (principal); R11.2 Nausea with vomiting, unspecified
CPT/HCPCS: 36415; 80053; 85025; 87081; 87880; 99283; J1100; Q0162

== ENCOUNTER 2018-11-22 08:33 | Outpatient (CLI) | payer MEDICAID ==
[~2018-11-22 08:33] MED LIST changes: -OMNIPAQUE 350 MG/ML, 75ML BOTTLE ONE
== END 2018-11-22 23:59 | disposition home or self-care (01) ==
LOC: ROC 08:33
PROVIDERS: ATTEND Radiology Radiation Oncology
DX: Z08 Encounter for follow-up examination after completed treatment for malignant neoplasm (principal); C25.1 Malignant neoplasm of body of pancreas
CPT/HCPCS: 99213; G0463

== ENCOUNTER → 2018-11-22 | Outpatient (CLI) | payer MEDICAID ==
[~2018-11-22] MED LIST changes: +OMNIPAQUE 350 MG/ML, 75ML BOTTLE ONE
== END | disposition home or self-care (01) ==
LOC: CFH 09:08
PROVIDERS: ATTEND Radiology Radiation Oncology
DX: J18.1 Lobar pneumonia, unspecified organism (principal); C25.1 Malignant neoplasm of body of pancreas; J98.11 Atelectasis
CPT/HCPCS: 71260; Q9967

== ENCOUNTER 2019-02-11 10:12 | Outpatient (CLI) | payer MEDICAID ==
[2019-02-11] MEDS ORDERED: OMNIPAQUE 350 MG/ML, 100ML BOTTLE ONE (14:50)
== END 2019-02-11 23:59 | disposition home or self-care (01) ==
LOC: CFH 10:12
PROVIDERS: ATTEND Radiology Radiation Oncology
DX: C25.1 Malignant neoplasm of body of pancreas (principal)
CPT/HCPCS: 71260; 74177; 82565; Q9967

== ENCOUNTER 2019-02-14 08:38 | Outpatient (CLI) | payer MEDICAID | END 2019-02-14 23:59 | disposition home or self-care (01) | LOC: ROC 08:38 | PROVIDERS: ATTEND Radiology Radiation Oncology | DX: C25.1 Malignant neoplasm of body of pancreas (principal) | CPT/HCPCS: 99212; G0463 ==

== ENCOUNTER 2019-11-08 11:02 | Outpatient (CLI) | payer MEDICAID ==
[~2019-11-08 11:02] MED LIST changes: -HYDR50TA13 PO; +HYDR50TA99 PO
[2019-11-08] MEDS ORDERED: OMNIPAQUE 350 MG/ML, 100ML BOTTLE ONE (16:07)
== END 2019-11-08 23:59 | disposition home or self-care (01) ==
LOC: CFH 11:02
PROVIDERS: ATTEND Radiology Radiation Oncology
DX: C25.1 Malignant neoplasm of body of pancreas (principal)
CPT/HCPCS: 71260; 74177; Q9967

== ENCOUNTER 2019-11-21 07:15 | Outpatient (CLI) | payer MEDICAID ==
[~2019-11-21 07:15] MED LIST changes: +HYDR50TA13 PO; -HYDR50TA99 PO
== END 2019-11-21 23:59 | disposition home or self-care (01) ==
LOC: ROC 07:15
PROVIDERS: ATTEND Radiology Radiation Oncology
DX: C25.1 Malignant neoplasm of body of pancreas (principal)
CPT/HCPCS: 99213; G0463

== ENCOUNTER → 2020-07-13 | Outpatient (CLI) | payer MEDICARE, MEDICAID ==
[~2020-07-13] MED LIST changes: -HYDR50TA13 PO; +HYDR50TA99 PO; +OMNIPAQUE 350 MG/ML, 100ML BOTTLE ONE
== END | disposition home or self-care (01) ==
LOC: CFH 12:36
PROVIDERS: ATTEND Radiology Radiation Oncology
DX: C25.1 Malignant neoplasm of body of pancreas (principal); K44.9 Diaphragmatic hernia without obstruction or gangrene; M51.36 Other intervertebral disc degeneration, lumbar region; M47.816 Spondylosis without myelopathy or radiculopathy, lumbar region; K57.30 Diverticulosis of large intestine without perforation or abscess without bleeding
CPT/HCPCS: 71260; 74177; Q9967

== ENCOUNTER 2020-07-18 10:37 | Outpatient (CLI) | payer MEDICARE ==
[~2020-07-18 10:37] MED LIST changes: -OMNIPAQUE 350 MG/ML, 100ML BOTTLE ONE
== END 2020-07-18 23:59 | disposition home or self-care (01) ==
LOC: ROC 10:37
PROVIDERS: ATTEND Radiology Radiation Oncology
DX: C25.1 Malignant neoplasm of body of pancreas (principal)
CPT/HCPCS: 99213; G0463

== ENCOUNTER 2020-08-08 06:14 | Day surgery (SDC) | payer MEDICARE, MEDICAID ==
[~2020-08-08] VITALS: Ht 165.1 cm; Wt 59.4 kg
[2020-08-08] MEDS ORDERED: SODIUM CHLORIDE 0.9% 1,000 ML IV SCH (06:45)
[2020-08-08 07:04] VITALS: BP 114/82
[2020-08-08] MEDS ORDERED: FENTANYL PF 100 MCG/2ML ONE (08:18)
[2020-08-08] MEDS ORDERED: MIDAZOLAM 1 MG/ML, 5ML ONE (08:18)
[2020-08-08] MEDS ORDERED: FLUMAZENIL 0.1 MG/1 ML, 5ML ONE (08:18)
[2020-08-08] MEDS ORDERED: NALOXONE 1 MG/ML, 2ML ONE (08:19)
== END 2020-08-08 10:30 | disposition home or self-care (01) ==
LOC: OUT 06:14
PROVIDERS: ATTEND Internal Medicine Hematology & Oncology
DX: R19.09 Other intra-abdominal and pelvic swelling, mass and lump (principal); C25.1 Malignant neoplasm of body of pancreas; Z79.899 Other long term (current) drug therapy; Z90.81 Acquired absence of spleen
CPT/HCPCS: 49180; 77012; 88112; 88305; 88333; 99156; 99157; J2250; J3010; J2310

== ENCOUNTER → 2020-11-14 | Outpatient (CLI) | payer MEDICARE, MEDICAID ==
[~2020-11-14] MED LIST changes: +LAMO25TA9 PO
== END | disposition home or self-care (01) ==
LOC: STAR 12:32
PROVIDERS: ATTEND Internal Medicine Geriatric Medicine
DX: Z01.818 Encounter for other preprocedural examination (principal); C25.1 Malignant neoplasm of body of pancreas; Z20.822 Contact with and (suspected) exposure to COVID-19
CPT/HCPCS: 87635; 93005

== ENCOUNTER 2020-11-20 10:12 | Day surgery (SDC) | payer MEDICARE, MEDICAID ==
[~2020-11-20] VITALS: Ht 165.1 cm; Wt 52.9 kg
[2020-11-20 10:45] VITALS: BP 136/85
[2020-11-20] MEDS ORDERED: CHLORHEXIDINE 15 ML UDC ONE (10:46)
[2020-11-20] MEDS ORDERED: LACTATED RINGERS 1,000 ML IV SCH (11:00)
[2020-11-20] MEDS ORDERED: CHLORHEXIDINE 15 ML UDC MM ONE (11:00)
[2020-11-20] MEDS ORDERED: FENTANYL PF 100 MCG/2ML ONE ×2 (12:36→14:18)
[2020-11-20] MEDS ORDERED: MIDAZOLAM 1 MG/ML, 2ML ONE (13:00)
[2020-11-20] MEDS ORDERED: PHENYLEPHRINE 10 MG/ML ONE (13:08)
[2020-11-20] MEDS ORDERED: PROPOFOL 10 MG/ML, 50ML ONE (13:08)
[2020-11-20] MEDS ORDERED: ONDANSETRON 2MG/ML, 2ML ONE (13:08)
[2020-11-20] MEDS ORDERED: OXYcodone 5 MG/5 ML ORAL.SOL UDC PO PRN (13:30)
[2020-11-20] MEDS ORDERED: METOPROLOL 1 MG/ML, 5ML IV PRN (13:30)
[2020-11-20] MEDS ORDERED: hydrALAzine 20 MG/ML, 1ML IV PRN (13:30)
[2020-11-20] MEDS ORDERED: EPHEDRINE 50 MG/ML, 1ML IVPush PRN (13:30)
[2020-11-20] MEDS ORDERED: HYDROmorphone 1 MG/ML, 1ML INJ IVPush PRN (13:30)
[2020-11-20] MEDS ORDERED: METOCLOPRAMIDE 5 MG/ML, 2ML IVPush PRN (13:30)
[2020-11-20] MEDS ORDERED: ACETAMINOPHEN 325 MG TABLET PO PRN (13:30)
[2020-11-20] MEDS ORDERED: ONDANSETRON 2MG/ML, 2ML IVPush PRN (13:30)
[2020-11-20] MEDS ORDERED: LABETALOL 5MG/ML, 20ML IV PRN (13:30)
[2020-11-20] MEDS ORDERED: KETOROLAC 30 MG/1 ML IV PRN (13:30)
[2020-11-20] MEDS ORDERED: LORazepam 2 MG/ML, 1ML IVPush PRN (13:30)
[2020-11-20] MEDS ORDERED: PROMETHAZINE 12.5 MG SUPP PR PRN (13:30)
[2020-11-20] MEDS ORDERED: DIPHENHYDRAMINE 50 MG/ML, 1ML IVPush PRN (13:30)
[2020-11-20] MEDS ORDERED: HALOPERIDOL 5 MG/ML IV PRN (13:30)
[2020-11-20] MEDS: FENTANYL PF 100 MCG/2ML IV PRN ×2 (14:23→14:37)
[2020-11-20] MEDS ORDERED: LORazepam 2 MG/ML, 1ML ONE (14:48)
== END 2020-11-20 16:30 | disposition home or self-care (01) ==
LOC: OUT 10:12
PROVIDERS: ATTEND Internal Medicine Geriatric Medicine
DX: K86.89 Other specified diseases of pancreas (principal); F32.9 Major depressive disorder, single episode, unspecified; M19.90 Unspecified osteoarthritis, unspecified site; F12.90 Cannabis use, unspecified, uncomplicated; F17.210 Nicotine dependence, cigarettes, uncomplicated; F17.220 Nicotine dependence, chewing tobacco, uncomplicated; Z98.890 Other specified postprocedural states; Z85.07 Personal history of malignant neoplasm of pancreas; Z72.89 Other problems related to lifestyle; Z80.1 Family history of malignant neoplasm of trachea, bronchus and lung; Z80.0 Family history of malignant neoplasm of digestive organs; Z79.899 Other long term (current) drug therapy
CPT/HCPCS: 43242; 88172; 88173; 88307; J2060; J2250; J2370; J2405; J2704; J3010; J7120

== ENCOUNTER → 2021-02-20 | Outpatient (CLI) | payer MEDICARE, MEDICAID ==
[~2021-02-20] MED LIST changes: +OMNIPAQUE 350 MG/ML, 100ML BOTTLE ONE
== END | disposition home or self-care (01) ==
LOC: CFH 13:04
PROVIDERS: ATTEND Radiology Radiation Oncology
DX: C25.1 Malignant neoplasm of body of pancreas (principal); K43.9 Ventral hernia without obstruction or gangrene
CPT/HCPCS: 71260; 74177; Q9967

== ENCOUNTER → 2021-02-25 | Outpatient (CLI) | payer MEDICARE, MEDICAID ==
[~2021-02-25] MED LIST changes: -OMNIPAQUE 350 MG/ML, 100ML BOTTLE ONE; +OXYC5TAB2 PO
== END | disposition home or self-care (01) ==
LOC: ROC 08:22
PROVIDERS: ATTEND Radiology Radiation Oncology
DX: Z08 Encounter for follow-up examination after completed treatment for malignant neoplasm (principal); Z85.07 Personal history of malignant neoplasm of pancreas
CPT/HCPCS: 99212; G0463

== ENCOUNTER 2021-03-12 06:23 | Day surgery (SDC) | payer MEDICARE, MEDICAID ==
[~2021-03-12] VITALS: Ht 165.1 cm; Wt 48.0 kg
[2021-03-12 07:14] VITALS: BP 126/83
[2021-03-12] MEDS ORDERED: SODIUM CHLORIDE 0.9% 1,000 ML IV SCH (07:30)
[2021-03-12 07:43] LABS: INTERNATIONAL NORMALIZED RATIO 1.01 (0.93-1.1); PROTHROMBIN TIME 10.8 Seconds (9.6-11.5)
[2021-03-12] MEDS ORDERED: FLUMAZENIL 0.1 MG/1 ML, 5ML ONE (08:07)
[2021-03-12] MEDS ORDERED: MIDAZOLAM 1 MG/ML, 5ML ONE (08:07)
[2021-03-12] MEDS ORDERED: NALOXONE 1 MG/ML, 2ML ONE (08:07)
[2021-03-12] MEDS ORDERED: FENTANYL PF 100 MCG/2ML ONE ×2 (08:07→08:08)
== END 2021-03-12 10:10 | disposition home or self-care (01) ==
LOC: OUT 06:23
PROVIDERS: ATTEND Internal Medicine Hematology & Oncology
DX: C25.1 Malignant neoplasm of body of pancreas (principal); C78.6 Secondary malignant neoplasm of retroperitoneum and peritoneum; F41.9 Anxiety disorder, unspecified; F32.9 Major depressive disorder, single episode, unspecified; M19.90 Unspecified osteoarthritis, unspecified site; F12.90 Cannabis use, unspecified, uncomplicated; Z79.899 Other long term (current) drug therapy; Z87.891 Personal history of nicotine dependence; Z80.1 Family history of malignant neoplasm of trachea, bronchus and lung; Z80.0 Family history of malignant neoplasm of digestive organs; Z84.1 Family history of disorders of kidney and ureter
CPT/HCPCS: 36415; 49180; 77012; 85610; 88305; 88333; 99156; 99157; J2250; J3010; J7030; J2310

== ENCOUNTER → 2021-05-27 | Outpatient (CLI) | payer MEDICARE, MEDICAID ==
[~2021-05-27] MED LIST changes: +OXYC10TA6 PO; +OXYC10TA72 PO
== END | disposition home or self-care (01) ==
LOC: RAD 13:09
PROVIDERS: ATTEND Internal Medicine Hematology & Oncology
DX: C25.1 Malignant neoplasm of body of pancreas (principal); R22.43 Localized swelling, mass and lump, lower limb, bilateral
CPT/HCPCS: 93970